=== PATIENT | female | born 1985 | race Caucasian/White ===

== ENCOUNTER 2024-01-11 18:42 | Inpatient (IN) | payer OTHER ==
[~2024-01-11] VITALS: Ht 165.1 cm; Wt 71.7 kg
[2024-01-11 19:58] VITALS: BP 151/93
[2024-01-11] MEDS ORDERED: SODIUM CHLORIDE 0.9% 1,000 ML IV ONE (20:20)
[2024-01-11 20:37] LABS: BASO % 0.6 % (0.0-1.0); EOS % 0.4 % (1.0-4.0); HEMATOCRIT 45.9 % (37.0-47.0); LYMPH # 2.1 10*3/uL (1.3-4.4); LYMPH % 40.8 % (27.0-41.0); MEAN CELL VOLUME 89.1 fl (81.0-99.0); MEAN CORPUSCULAR HGB 30.9 pg (27.0-31.0); MEAN CORPUSCULAR HGB CONC 34.6 g/dl (33.0-37.0); MEAN PLATELET VOLUME 10.6 fl (9.6-12.3); MONO # 0.4 10*3/uL (0.1-1.0); MONO % 8.5 % (3.0-9.0); NEUT # 2.5 10*3/uL (2.3-7.9); NEUT % 49.5 % (47.0-73.0); PLATELET COUNT AUTOMATED 204 10*3/uL (130-400); RED BLOOD COUNT 5.15 10*6/uL (4.10-5.10); RED CELL DISTRI WIDTH 13.4 % (0-14.5); WHITE BLOOD COUNT 5.1 10*3/uL (4.8-10.8)
[2024-01-11 20:48] LABS: ACT PARTIAL THROMBO TIME 29.3 SECONDS (20.0-32.1)
[2024-01-11 21:04] LABS: ALKALINE PHOSPHATASE 48 U/L (46-116); B-hCG (QUALITATIVE) NEGATIVE (NEGATIVE); BETA-HCG, QUANT < 3.0 mIU/mL (3-10); BUN 5 mg/dl (9-23); CHLORIDE 102 mmol/L (98-107); FREE T4 1.19 ng/dl (0.89-1.76); LDH 121 U/L (120-246); LIPASE 22 U/L (12-53); POTASSIUM 2.6 mmol/L (3.4-5.1); SGPT/ALT 15 U/L (5-49); TOTAL PROTEIN 6.9 gm/dL (6.0-8.0)
[2024-01-11] MEDS ORDERED: POTASSIUM CHLORIDE 100 ML IV SCH (21:30)
[2024-01-11] MEDS ORDERED: POTASSIUM CHLORIDE 20 MEQ TAB PO ONE (21:30)
[2024-01-11] MEDS ORDERED: ACETAMINOPHEN 325 MG TAB PO PRN (21:55)
[2024-01-11] MEDS ORDERED: ACETAMINOPHEN 650 MG SUPP R PRN (21:55)
[2024-01-11 22:47] VITALS: BP 98/68
[2024-01-11 23:54] LABS: BILIRUBIN Negative (Negative); BLOOD Negative (Negative); CLARITY Clear (Clear); COLOR Dark Yellow (Yellow); GLUCOSE Negative (Negative); KETONE 4+ (Negative); LEUKO ESTERASE Negative (Negative); NITRITE Negative (Negative); PH 5.5 (4.5-8.0); SPECIFIC GRAVITY 1.025 (1.001-1.030)
[2024-01-11] MEDS ORDERED: LORAZEPAM1 MG PO (23:59)
[2024-01-12] MEDS ORDERED: VALTREX1000 MG PO (00:01)
[2024-01-12 00:02] LABS: URINE AMPHETAMINES Negative (1000ng/ml); URINE BARBITURATES Negative (200ng/ml); URINE BENZODIAZEPINES Negative (200ng/ml); URINE CANNABINOIDS (THC) Positive (50ng/ml); URINE COCAINE Negative (300ng/ml); URINE METHADONE Negative (300ng/ml); URINE OPIATES Negative (300ng/ml); URINE PHENCYCLIDINE Negative (25ng/ml)
[2024-01-12] MEDS ORDERED: Ondansetron4 MG PO (00:03)
[2024-01-12] MEDS ORDERED: ZOLPIDEM10 MG PO (00:04)
[2024-01-12] MEDS ORDERED: MINIPRESS5 M1 PO (00:05)
[2024-01-12 00:24] LABS: EPITHELIAL CELLS 21-30
[2024-01-12 05:32] VITALS: BP 102/62
[2024-01-12] MEDS ORDERED: SODIUM CHLORIDE 0.9% 1,000 ML IV ONE ×2 (06:10→11:15)
[2024-01-12 07:25] LABS: CHLORIDE 109 mmol/L (98-107); POTASSIUM 3.5 mmol/L (3.4-5.1)
[2024-01-12 07:34] LABS: BUN < 5 mg/dl (9-23)
[2024-01-12 08:00] VITALS: BP 101/62
[2024-01-12] MEDS ORDERED: Enoxaparin Sodium 40 MG/0.4 ML SYR SC SCH (10:00)
[2024-01-12 11:00] VITALS: BP 102/64
[2024-01-12 15:17] VITALS: BP 101/62
[2024-01-12] MEDS ORDERED: LORazepam 1 MG TAB PO PRN (15:25)
[2024-01-12 19:20] VITALS: BP 104/60
[2024-01-12] MEDS ORDERED: ZOLPIDEM TARTRATE 5 MG TAB PO SCH (22:00)
[2024-01-12] MEDS ORDERED: Prazosin Hydrochloride 5 MG CAP PO SCH (22:00)
[2024-01-12] MEDS ORDERED: Valacyclovir Hydrochloride 500 MG CAP PO SCH (22:00)
[2024-01-13 04:08] VITALS: BP 118/71
[2024-01-13 07:45] LABS: BASO % 0.7 % (0.0-1.0); EOS # 0.1 10*3/uL (0.0-0.4); EOS % 1.5 % (1.0-4.0); HEMATOCRIT 36.4 % (37.0-47.0); LYMPH % 47.9 % (27.0-41.0); MEAN CELL VOLUME 91.7 fl (81.0-99.0); MEAN CORPUSCULAR HGB CONC 34.9 g/dl (33.0-37.0); MEAN PLATELET VOLUME 11.2 fl (9.6-12.3); MONO # 0.4 10*3/uL (0.1-1.0); NEUT # 1.7 10*3/uL (2.3-7.9); NEUT % 40.7 % (47.0-73.0); PLATELET COUNT AUTOMATED 151 10*3/uL (130-400); RED BLOOD COUNT 3.97 10*6/uL (4.10-5.10); RED CELL DISTRI WIDTH 13.7 % (0-14.5); WHITE BLOOD COUNT 4.1 10*3/uL (4.8-10.8)
[2024-01-13 08:00] VITALS: BP 94/59
[2024-01-13 08:26] LABS: CHLORIDE 111 mmol/L (98-107); POTASSIUM 3.4 mmol/L (3.4-5.1)
[2024-01-13 08:36] LABS: BUN < 5 mg/dl (9-23)
[2024-01-13 10:16] VITALS: BP 103/67
[2024-01-13] MEDS ORDERED: DESIPRAMINE50 MG PO (14:11)
[2024-01-13] MEDS ORDERED: [UNRECOGNIZED DRUG - OTHER] PO SCH (22:00)
== END 2024-01-13 13:22 | disposition home or self-care (01) | DRG 887 ==
LOC: ED 18:42 → EDHOLD 21:44
PROVIDERS: Emergency Medicine; Student in an Organized Health Care Education/Training Program; ADMIT Internal Medicine; ATTEND Internal Medicine
DX: F50.89 Other specified eating disorder (principal); R65.10 Systemic inflammatory response syndrome (SIRS) of non-infectious origin without acute organ dysfunction; F33.9 Major depressive disorder, recurrent, unspecified; E87.20 Acidosis, unspecified; E86.0 Dehydration; E87.6 Hypokalemia; R94.31 Abnormal electrocardiogram [ECG] [EKG]; F60.3 Borderline personality disorder; F34.1 Dysthymic disorder; Z90.49 Acquired absence of other specified parts of digestive tract